=== PATIENT | female | born 1980 | race Caucasian/White ===

== ENCOUNTER 2019-08-03 03:25 | Emergency (ER) | payer OTHER ==
[~2019-08-03] VITALS: Ht 162.6 cm; Wt 49.9 kg
[2019-08-03 03:29] VITALS: Ht 162.6 cm; Wt 49.9 kg
[2019-08-03 04:13] VITALS: BP 149/85
== END 2019-08-03 04:13 | disposition home or self-care (01) ==
LOC: ED 03:25
DX: R10.84 Generalized abdominal pain (principal); R11.0 Nausea; F41.9 Anxiety disorder, unspecified; M79.10 Myalgia, unspecified site; Z79.899 Other long term (current) drug therapy

== ENCOUNTER 2019-08-05 08:32 | Emergency (ER) | payer OTHER ==
[~2019-08-05] VITALS: Ht 162.6 cm; Wt 50.3 kg
[2019-08-05 08:36] VITALS: Ht 162.6 cm; Wt 50.3 kg
[2019-08-05 09:14] LABS: BASOPHIL % 0.9 % (0-2); PLATELET COUNT 291 x10^3mcL (130-400)
[2019-08-05 09:38] LABS: CALCIUM 9.6 mg/dL (8.5-10.1); CARBON DIOXIDE 27.2 mmol/L (21-32); CHLORIDE SERUM 102 mmol/L (98-107); CREATININE SERUM 0.6 mg/dL (0.6-1.0); GFR1 > 60 mL/min; GLUCOSE SERUM 99 mg/dL (74-106); POTASSIUM SERUM 3.2 mmol/L (3.5-5.1); SODIUM SERUM 141 mmol/L (136-145)
[2019-08-05 09:43] LABS: ALBUMIN 4.4 g/dL (3.4-5.0); ALKALINE PHOSPHATASE 56 U/L (46-116); ALT/SGPT 27 U/L (14-59); AST/SGOT 12 U/L (15-37); LIPASE 73 IU/L (73-393)
[2019-08-05 11:20] VITALS: BP 118/84
== END 2019-08-05 11:20 | disposition home or self-care (01) ==
LOC: ED 08:32
PROVIDERS: Emergency Medicine
DX: K29.70 Gastritis, unspecified, without bleeding (principal); F41.9 Anxiety disorder, unspecified; R53.1 Weakness
CPT/HCPCS: 36415